=== PATIENT | male | born 1950 | race Caucasian/White ===

== ENCOUNTER 2017-11-19 20:49 | Emergency (ER) | payer MEDICARE ==
[2017-11-19] MEDS ORDERED: CIPROFLOXACIN 500 MG TAB PO ONE (21:05)
[2017-11-19] MEDS ORDERED: CLINDAMYCIN 600 MG/4 ML 600 MG in NS(*) 0.9% 100 ML BAG 100 ML IVPB ONE (21:05)
[2017-11-19] MEDS ORDERED: CLINDAMYCIN 600 MG/4 ML VIAL ONE (21:12)
--- NOTE | 2017-11-19 21:13 | ER Report ---
History and Physical Time Seen By MD: 20:59 Hx. of Stated Complaint: pt reports intermittent lymphedema in R leg for years from cancer. recently has had increased swelling and redness as well as chills/hot flashes HPI/ROS CHIEF COMPLAINT: Right leg swelling and redness HISTORY OF PRESENT ILLNESS: 67-year-old male with history of chronic medical problems including cancer with lymph node dissection in the right groin. Patient has chronic lymphedema of the right lower extremity. Usually eats very mild. Occasionally it swells. He is traveling from [place] to [place]. Patient's been in the car for the last 2-3 days. His leg is had increasing swelling and redness. He's having some subjective chills and fever. He is concerned is right lower extremity is infected. REVIEW OF SYSTEMS: Respiratory: No cough, no dyspnea. Cardiovascular: No chest pain, no palpitations. Gastrointestinal: No vomiting, no abdominal pain. Musculoskeletal: No back pain. Allergies: Coded Allergies: No Known Drug Allergies (Unverified , 11/19/17) Home Meds Active Scripts Ciprofloxacin Hcl (CIPRO) 500 Mg Tablet, 500 MG PO BID for infection, #14 Prov:NETFALI FLORES DO 11/19/17 Clindamycin Hcl (CLINDAMYCIN HCL) 300 Mg Capsule, 300 MG PO TID for infection, # 20 CAPSULE TAKE 1 CAPSULE EVERY SIX HOURS Prov:NEFTALI FLORES DO 11/19/17 Past Medical/Surgical History Past medical history: Recurrent sinus infections, frequent pneumonia, Gian cell carcinoma/neuroendocrine tumor Past surgical history: Multiple orthopedic surgeries, neuroendocrine tumor resection, lymph node dissection Reviewed Nurses Notes: Yes Old Medical Records Reviewed: Yes Constitutional Vital Sign - Last 24 Hours 11/19/17 11/19/17 11/19/17 11/19/17 20:58 20:58 21:00 21:19 Temp 97.6 Pulse 120 112 Resp 18 B/P (MAP) 122/102 156/79 (104) 122/102 (109) Pulse Ox 90 O2 Delivery Room Air 11/19/17 11/19/17 11/19/17 11/19/17 21:30 22:00 22:30 23:00 B/P (MAP) 116/93 (101) 103/65 (78) 94/61 (72) 103/65 (78) 11/19/17 23:30 B/P (MAP) 102/69 (80) Physical Exam General appearance: Mild distress Respiratory: Chest is non tender, lungs are clear to auscultation. Cardiac: Regular rate and rhythm Extremities: Examination of the right lower extremity reveals gross edema to the groin. There is probably 3+ edema throughout the entire leg. There are gross erythema to the knee. There is a spotty rash on the medial thigh. There is no inguinal lymphadenopathy. There are intact pulses in the right foot DIFFERENTIAL DIAGNOSIS: After history and physical exam differential diagnosis was considered for cellulitis, DVT, lymphedema Medical Decision Making Data Points Result Diagram: 11/19/17211611/19/172116 Laboratory Hematology Test 11/19/17 21:17 11/19/17 21:55 Red Blood Count 4.62 M/uL (4.00-5.60) Mean Corpuscular Volume 93.4 fL (80.0-96.0) Mean Corpuscular Hemoglobin 33.1 pg (26.0-33.0) Mean Corpuscular Hemoglobin Concent 35.5 g/dL (32.0-36.0) Red Cell Distribution Width 13.5 % (11.5-14.5) Mean Platelet Volume 8.2 fL (7.2-11.1) Neutrophils (%) (Auto) 77.3 % (39.4-72.5) Lymphocytes (%) (Auto) 11.3 % (17.6-49.6) Monocytes (%) (Auto) 10.3 % (4.1-12.4) Eosinophils (%) (Auto) 0.7 % (0.4-6.7) Basophils (%) (Auto) 0.4 % (0.3-1.4) Nucleated RBC Relative Count (auto) 0.0 /100WBC Neutrophils # (Auto) 10.2 K/uL (2.0-7.4) Lymphocytes # (Auto) 1.5 K/uL (1.3-3.6) Monocytes # (Auto) 1.4 K/uL (0.3-1.0) Eosinophils # (Auto) 0.1 K/uL (0.0-0.5) Basophils # (Auto) 0.1 K/uL (0.0-0.1) Nucleated RBC Absolute Count (auto) 0.00 K/uL Erythrocyte Sedimentation Rate 34 mm/HOUR (0-20) Sodium Level 139 mmol/L (137-145) Potassium Level 3.3 mmol/L (3.5-5.0) Chloride Level 100 mmol/L (98-107) Carbon Dioxide Level 25 mmol/L (22-30) Blood Urea Nitrogen 21 mg/dl (9-21) Creatinine 1.20 mg/dl (0.66-1.25) Glomerular Filtration Rate Calc > 60.0 Random Glucose 175 mg/dl (75-110) Calcium Level 8.6 mg/dl (8.4-10.2) Total Bilirubin 0.9 mg/dl (0.2-1.3) Aspartate Amino Transf (AST/SGOT) 46 U/L (0-35) Alanine Aminotransferase (ALT/SGPT) 48 U/L (0-56) Alkaline Phosphatase 93 U/L (0-126) C-Reactive Protein 7.7 mg/dl (<1.0) Total Protein 7.3 gm/dl (6.3-8.2) Albumin 3.7 g/dl (3.5-5.0) Urine Color Kiara Urine Clarity Slightly-cloudy Urine pH 5.0 pH (4.8-9.5) Urine Specific [place] 1.030 Urine Protein 30 mg/dL (NEGATIVE) Urine Glucose (UA) Negative mg/dL (NEGATIVE) Urine Ketones Negative mg/dL (NEGATIVE) Urine Blood Negative (NEGATIVE) Urine Nitrite Negative (NEGATIVE) Urine Bilirubin Negative (NEGATIVE) Urine Urobilinogen 4.0 mg/dL (0.2-1.9) Urine Leukocyte Esterase Negative (NEGATIVE) Urine RBC None /HPF (0-2/HPF) Urine WBC 3 /HPF (0-5/HPF) Urine Squamous Epithelial Cells None /LPF (</=FEW) Urine Bacteria Negative /HPF (NONE-FEW) Urine Hyaline Casts Many /LPF (NONE-FEW) Urine Granular Casts Many /LPF (NONE) Urine Mucus Few /HPF (NONE-FEW) Chemistry Test 11/19/17 21:17 11/19/17 21:55 White Blood Count 13.2 k/uL (4.5-11.0) Red Blood Count 4.62 M/uL (4.00-5.60) Hemoglobin 15.3 g/dL (14.0-18.0) Hematocrit 43.2 % (42.0-52.0) Mean Corpuscular Volume 93.4 fL (80.0-96.0) Mean Corpuscular Hemoglobin 33.1 pg (26.0-33.0) Mean Corpuscular Hemoglobin Concent 35.5 g/dL (32.0-36.0) Red Cell Distribution Width 13.5 % (11.5-14.5) Platelet Count 246 K/uL (150-450) Mean Platelet Volume 8.2 fL (7.2-11.1) Neutrophils (%) (Auto) 77.3 % (39.4-72.5) Lymphocytes (%) (Auto) 11.3 % (17.6-49.6) Monocytes (%) (Auto) 10.3 % (4.1-12.4) Eosinophils (%) (Auto) 0.7 % (0.4-6.7) Basophils (%) (Auto) 0.4 % (0.3-1.4) Nucleated RBC Relative Count (auto) 0.0 /100WBC Neutrophils # (Auto) 10.2 K/uL (2.0-7.4) Lymphocytes # (Auto) 1.5 K/uL (1.3-3.6) Monocytes # (Auto) 1.4 K/uL (0.3-1.0) Eosinophils # (Auto) 0.1 K/uL (0.0-0.5) Basophils # (Auto) 0.1 K/uL (0.0-0.1) Nucleated RBC Absolute Count (auto) 0.00 K/uL Erythrocyte Sedimentation Rate 34 mm/HOUR (0-20) Glomerular Filtration Rate Calc > 60.0 Calcium Level 8.6 mg/dl (8.4-10.2) Total Bilirubin 0.9 mg/dl (0.2-1.3) Aspartate Amino Transf (AST/SGOT) 46 U/L (0-35) Alanine Aminotransferase (ALT/SGPT) 48 U/L (0-56) Alkaline Phosphatase 93 U/L (0-126) C-Reactive Protein 7.7 mg/dl (<1.0) Total Protein 7.3 gm/dl (6.3-8.2) Albumin 3.7 g/dl (3.5-5.0) Urine Color Kiara Urine Clarity Slightly-cloudy Urine pH 5.0 pH (4.8-9.5) Urine Specific [place] 1.030 Urine Protein 30 mg/dL (NEGATIVE) Urine Glucose (UA) Negative mg/dL (NEGATIVE) Urine Ketones Negative mg/dL (NEGATIVE) Urine Blood Negative (NEGATIVE) Urine Nitrite Negative (NEGATIVE) Urine Bilirubin Negative (NEGATIVE) Urine Urobilinogen 4.0 mg/dL (0.2-1.9) Urine Leukocyte Esterase Negative (NEGATIVE) Urine RBC None /HPF (0-2/HPF) Urine WBC 3 /HPF (0-5/HPF) Urine Squamous Epithelial Cells None /LPF (</=FEW) Urine Bacteria Negative /HPF (NONE-FEW) Urine Hyaline Casts Many /LPF (NONE-FEW) Urine Granular Casts Many /LPF (NONE) Urine Mucus Few /HPF (NONE-FEW) Urinalysis Test 11/19/17 21:55 Urine Color Kiara Urine Clarity Slightly-cloudy Urine pH 5.0 pH (4.8-9.5) Urine Specific [place] 1.030 Urine Protein 30 mg/dL (NEGATIVE) Urine Glucose (UA) Negative mg/dL (NEGATIVE) Urine Ketones Negative mg/dL (NEGATIVE) Urine Blood Negative (NEGATIVE) Urine Nitrite Negative (NEGATIVE) Urine Bilirubin Negative (NEGATIVE) Urine Urobilinogen 4.0 mg/dL (0.2-1.9) Urine Leukocyte Esterase Negative (NEGATIVE) Urine RBC None /HPF (0-2/HPF) Urine WBC 3 /HPF (0-5/HPF) Urine Squamous Epithelial Cells None /LPF (</=FEW) Urine Bacteria Negative /HPF (NONE-FEW) Urine Hyaline Casts Many /LPF (NONE-FEW) Urine Granular Casts Many /LPF (NONE) Urine Mucus Few /HPF (NONE-FEW) EKG/Imaging Imaging Results: Ultrasound of the right lower extremity was obtained. The results of the study are no evidence of DVT. [The study was read by the radiologist]. [I viewed the images myself on the PACS system]. ED Course/Re-evaluation Clinical Indication for ER IV: IV Access ED Course Patient was admitted to an examination room. H&P was done. The dental diagnoses was considered. Patient with right lower extremity cellulitis. He also is chronic lymphedema. He presents with a fever. Patient's treated with IV clindamycin and Cipro by mouth after being pancultured. An ultrasound was performed of his right lower extremity to rule out DVT. He's been traveling in a car for the last 3 days. Patient plans on continuing on his trip to [place]. He'll be covered with Catina to mycin and Cipro. He is advised to go to the nearest ER for any worsening. His erythema is outlined with permanent marker. Decision to Disposition Date: Nov 19, 2017 Decision to Disposition Time: 21:16 Depart Departure Latest Vital Signs Vital Signs Date Time Temp Pulse Resp B/P (MAP) Pulse Ox O2 Delivery O2 Flow Rate FiO2 11/19/17 23:30 102/69 (80) 11/19/17 21:19 112 11/19/17 20:58 97.6 18 90 Room Air Impression: Primary Impression: Cellulitis of right lower extremity Additional Impression: Lymphedema Condition: Improved Disposition: HOME OR SELF-CARE New Scripts Ciprofloxacin Hcl (CIPRO) 500 Mg Tablet 500 MG PO BID for infection, #14 Prov: NEFTALI FLORES DO 11/19/17 Clindamycin Hcl (CLINDAMYCIN HCL) 300 Mg Capsule 300 MG PO TID for infection, #20 CAPSULE TAKE 1 CAPSULE EVERY SIX HOURS Prov: NEFTALI FLORES DO 11/19/17 Patient Instructions: Cellulitis (ED) Additional Instructions: Keep leg elevated as much as possible Apply heating pad to the leg or perform warm to hot soaks in a bathtub Go to the nearest ER for any worsening Follow-up with your primary care upon returning home to [place] Problem Qualifiers NEFTALI FLORES DO Nov 19, 2017 21:13
[2017-11-19] MEDS ORDERED: CIPR-344 PO (21:18)
[2017-11-19] MEDS ORDERED: CLIN300C99 PO (21:18)
[2017-11-19] MEDS ORDERED: NS(*) 0.9% 100 ML BAG 100 ML ONE (21:20)
[2017-11-19 21:37] LABS: PLATELET COUNT, AUTOMATED 246 K/uL (150-450)
--- NOTE | 2017-11-19 23:20 | RADIOLOGY IMAGING REPORT ---
FACILITY: [facility] [place] PATIENT NAME: Mario Koenig : 1950 MR: [id number] V: [id number] EXAM DATE: ORDERING PHYSICIAN: NEFTALI FLORES TECHNOLOGIST: Location: [facility] Patient: Mario Koenig : 1950 Visit/Account:[id number] Date of Sevice: 11/19/2017 EXAMINATION: RIGHT LOWER EXTREMITY DOPPLER VENOUS ULTRASOUND DATE: 11/19/2017 9:13 PM INDICATION: Right lower extremity redness and swelling/edema. TECHNIQUE: Grayscale, color and pulsed Doppler ultrasound was performed of the right lower extremity veins to evaluate for deep venous thrombosis. COMPARISON: None. FINDINGS: The right common femoral, superficial femoral, and popliteal veins are compressible with normal flow on color Doppler and preserved venous waveform variation where assessed. There is also normal color D oppler flow in the profunda femoris and greater saphenous veins. The right posterior tibial and peroneal veins have patent color Doppler flow. IMPRESSION: No evidence of deep venous thrombosis in the right lower extremity. Report Dictated By: Kris Guillen MD at 11/19/2017 11:15 PM Report E-Signed By: Kris Guillen MD at 11/19/2017 11:16 PM WSN:[id number]
[2017-11-19 23:30] VITALS: BP 102/69
== END 2017-11-19 23:47 | disposition home or self-care (01) ==
LOC: ER 21:14
DX: L03.116 Cellulitis of left lower limb (principal); I89.0 Lymphedema, not elsewhere classified; B95.8 Unspecified staphylococcus as the cause of diseases classified elsewhere
CPT/HCPCS: 36415; 81001; 85025; 85651; 86140; 87040; 93971; 96365; 99284; A9270; J3490; J7050; 82040; 82247; 82310; 82374; 82435; 82565; 82947; 84075; 84132; 84155; 84295; 84450; 84460; 84520